=== PATIENT | male | born 1990 | race American Indian/Alaskan Native ===

== ENCOUNTER 2022-03-14 11:05 | Emergency (ER) | payer SELFPAY ==
[2022-03-14 11:10] VITALS: BP 114/66
--- NOTE | 2022-03-14 11:47 | XRay Report ---
XR ankle 3+V RT INDICATION / CLINICAL INFORMATION: injury, pain, swelling COMPARISON: None available. FINDINGS: BONES / JOINT(S): No acute fracture or subluxation. Ankle mortise is symmetric. No significant arthri tis. SOFT TISSUES: No significant abnormality. ADDITIONAL FINDINGS: None. IMPRESSION: No acute osseous findings in the right ankle. Signer Name: Demian Lui MD Signed: 03/14/2022 11:43 AM Workstation Name: [id number]
[2022-03-14] MEDS ORDERED: ACETAMINOPHEN 325 MG TAB PO ONE (13:37)
[2022-03-14] MEDS ORDERED: IBUPROFEN 800 MG TAB PO ONE (13:37)
--- NOTE | 2022-03-14 13:42 | Emergency Department Report ---
ED Lower Extremity HPI - General Chief Complaint: Extremity Injury, Lower Stated Complaint: R ANKLE SWOLLEN/PAIN Time Seen by Provider: 03/14/22 13:36 Source: patient, EMS ( EMS documentation not available at time of chart dictation ), RN notes reviewed Mode of arrival: Ambulatory Limitations: Physical Limitation - History of Present Illness Initial Comments: This is a pleasant and cooperative 31-year-old gentleman who presents to the department today with complaint of right ankle pain, after jumping from the roof of her car onto her trunk yesterday. No other additional injuries or complaints. Pain is sharp and throbbing, increases with palpation, decreases with rest. MD Complaint: ankle injury -: Sudden, days(s) Injury: Hip: Right, Ankle: Right Type of Injury: blunt Place: street/outdoors Severity: severe Improves With: rest Worsens With: movement, palpation Context: fall, direct blow Associated Symptoms: swelling - Related Data Previous Rx's Medication Instructions Recorded Last Taken Type Acetaminophen [Acetaminophen ER 650 mg PO Q6HR PRN #30 tab 03/14/22 Unknown Rx TAB] Naproxen [Naprosyn] 500 mg PO BID PRN #30 tab 03/14/22 Unknown Rx Allergies Allergy/AdvReac Type Severity Reaction Status Date / Time No Known Allergies Allergy Unverified 03/14/22 11:09 ED Review of Systems ROS: Stated complaint: R ANKLE SWOLLEN/PAIN Other details as noted in HPI Musculoskeletal: joint swelling, arthralgia, myalgia ED Past Medical Hx - Past Medical History Previous Medical History?: No - Medications Home Medications: Home Medications Medication Instructions Recorded Confirmed Last Taken Type Acetaminophen [Acetaminophen ER 650 mg PO Q6HR PRN #30 tab 03/14/22 Unknown Rx TAB] Naproxen [Naprosyn] 500 mg PO BID PRN #30 tab 03/14/22 Unknown Rx ED Physical Exam - General Limitations: No Limitations, Physical Limitation General appearance: alert, in no apparent distress - Head Head exam: Present: atraumatic, normocephalic - Eye Eye exam: Present: normal appearance, EOMI. Absent: nystagmus - ENT ENT exam: Present: normal exam, normal orophraynx, mucous membranes moist, normal external ear exam - Neck Neck exam: Present: normal inspection, full ROM. Absent: tenderness, meningismus - Respiratory Respiratory exam: Present: normal lung sounds bilaterally. Absent: respiratory distress, wheezes, rales, rhonchi, stridor, decreased breath sounds - Cardiovascular Cardiovascular Exam: Present: regular rate, normal rhythm, normal heart sounds. Absent: bradycardia, tachycardia, irregular rhythm, systolic murmur, diastolic murmur, rubs, gallop - GI/Abdominal GI/Abdominal exam: Present: soft. Absent: distended, tenderness, guarding, rebound, rigid, pulsatile mass - Rectal Rectal exam: Present: deferred - Extremities Exam Extremities exam: Present: normal inspection, full ROM (Bilateral upper extremities. Left lower extremity), tenderness (Right medial, lateral, anterior ankle), normal capillary refill, other (2+ pulses noted in the bilateral upper and lower extremities. The upper extremities are nontender. The left lower extremity is nontender. The pelvis is stable. Right lower extremity nontender, with exception of the right ankle). Absent: pedal edema, calf tenderness - Back Exam Back exam: Present: normal inspection. Absent: tenderness, CVA tenderness (R), CVA tenderness (L), paraspinal tenderness, vertebral tenderness - Neurological Exam Neurological exam: Present: alert, oriented X3, other (No facial droop. Tongue midline. Extraocular movements intact bilaterally. Facial sensation intact to light touch in V1, V2, V3 distribution bilaterally. 5 and a 5 strength in 4 extremities. Sensation intact to light touch in 4 extremities.). Absent: motor sensory deficit - Psychiatric Psychiatric exam: Present: normal affect, normal mood - Skin Skin exam: Present: warm, dry, intact, normal color. Absent: rash ED Course Vital Signs 03/14/22 11:08 Temperature 97.6 F Pulse Rate 80 Respiratory 18 Rate Blood Pressure 114/66 [Left] O2 Sat by Pulse 97 Oximetry ED Lower Extremity MDM - Lab Data Vital Signs 03/14/22 11:08 Temperature 97.6 F Pulse Rate 80 Respiratory 18 Rate Blood Pressure 114/66 [Left] O2 Sat by Pulse 97 Oximetry - Radiology Data Radiology results: pending, report reviewed, image reviewed XR ankle 3+V RT INDICATION / CLINICAL INFORMATION: injury, pain, swelling COMPARISON: None available. FINDINGS: BONES / JOINT(S): No acute fracture or subluxation. Ankle mortise is symmetric. No significant arthritis. SOFT TISSUES: No significant abnormality. ADDITIONAL FINDINGS: None. IMPRESSION: No acute osseous findings in the right ankle. Signer Name: Demian Lui MD Signed: 03/14/2022 10:43 AM Workstation Name: [id number] - Medical Decision Making Differential diagnosis, including but not limited to: Sprain, strain, fracture, dislocation Assessment and plan: 31-year-old gentleman with isolated right ankle pain after mechanical fall yesterday. No additional injuries or complaints. He is neurovascularly intact. X-rays show no fracture or dislocation. Crutches, nonweightbearing, rest, ice, compression, elevation, ankle splint, outpatient primary care, or sports medicine follow-up. Return precautions are reviewed. Patient does not appear to have an emergent medical condition present at this time Critical care attestation.: If time is entered above; I have spent that time in minutes in the direct care of this critically ill patient, excluding procedure time. ED Disposition Clinical Impression: Right ankle pain Disposition: HOME / SELF CARE / HOMELESS Is pt being admited?: No Does the pt Need Aspirin: No Condition: Good Instructions: Joint Pain, [id number] Additional Instructions: pain typically gets worse before it gets better after mild blunt trauma rest and avoid heavy lifting, and avoid strenuous physical activity. Engage in physical activities as tolerated. For pain, the patient can take ibuprofen, 600 mg with food every 6 hours, alternating with acetaminophen, 650 mg every 4 hours, also which can be purchased [id number]. Return to the ER right away with new pain, worsened pain, migration of pain, fevers, chills, confusion, weakness, numbness, intractable nausea or vomiting, severe chest pain, or severe abdominal pain. Alternatively, may take the prescribed Naprosyn. However, patient should not combine Naprosyn and ibuprofen. Patient should only take 1 or the other. Patient may combine Naprosyn, or ibuprofen, with Tylenol/acetaminophen, as directed. Use the crutches as directed. Remain nonweightbearing on the right lower extremity. Follow-up with a primary care doctor, orthopedist, or sports medicine physician within the next 5 to 7 days for repeat checkup and evaluation Please return to the emergency room right away with new pain, worsened pain, migration of pain, projectile vomiting, change in mental status, confusion, inability tolerate liquid feeds, new, worsened or different symptoms not present on the initial emergency room evaluation Referrals: SHER MORRISSEY MD [Staff Physician] - 3-5 Days [facility] [Provider Group] - 3-5 Days [facility] [Provider Group] - 3-5 Days Forms: Work/School Release Form(ED)
== END 2022-03-14 14:19 | disposition home or self-care (01) ==
LOC: ED 11:05
DX: M25.571 Pain in right ankle and joints of right foot (principal); Z79.899 Other long term (current) drug therapy; W18.39XA Other fall on same level, initial encounter; Y93.89 Activity, other specified; Y92.89 Other specified places as the place of occurrence of the external cause; Y99.8 Other external cause status
CPT/HCPCS: 99283